=== PATIENT | female | born 1950 | race Caucasian/White ===

== ENCOUNTER 2018-05-28 05:30 | Observation (INO) | payer OTHER, MEDICARE ==
[2018-05-28] MEDS ORDERED: LACTATED RINGER'S 1,000 ML IV (07:00)
[2018-05-28] MEDS ORDERED: CEFAZOLIN 1 GM INJ (07:00)
[2018-05-28] MEDS ORDERED: MIDAZOLAM 1 MG/ML 2 ML INJ (07:12)
[2018-05-28] MEDS ORDERED: ROPIVACAINE 0.5 % 30 ML VIAL (07:14)
[2018-05-28 07:54] LABS: ADD UMIC YES; UR ASCORBIC ACID 20 mg/dL (NEGATIVE); UR BILIRUBIN (Dip) NEGATIVE (NEGATIVE); UR BLOOD (Dip) NEGATIVE (NEGATIVE); UR CLARITY CLEAR (CLEAR); UR COLOR YELLOW (YELLOW); UR GLUCOSE (Dip) NEGATIVE (NEGATIVE); UR KETONES (Dip) NEGATIVE (NEGATIVE); UR LEUKOCYTE ESTERASE (Dip) 1+ Leu/ul (NEGATIVE); UR NITRITE (Dip) NEGATIVE (NEGATIVE); UR RBC 1 /HPF (0-5); UR SPECIFIC GRAVITY (Dip) 1.014 (1.003-1.030); UR SQUAMOUS EPITHELIAL CELL FEW /HPF (FEW); UR TOTAL PROTEIN (Dip) NEGATIVE (NEGATIVE); UR UROBILINOGEN (Dip) NEGATIVE (NEGATIVE); UR WBC 3 /HPF (0-5)
[2018-05-28] MEDS ORDERED: hydrALAzine 20 MG INJ (08:54)
[2018-05-28] MEDS: EPINEPHrine 1 MG/ML 30 ML INJ IRR (09:02)
[2018-05-28] MEDS ORDERED: morphine 10 MG INJ (10:16)
[2018-05-28] MEDS ORDERED: KETOROLAC 30 MG INJ ×2 (11:27→13:15)
[2018-05-28] MEDS ORDERED: ONDANSETRON 4 MG INJ ×2 (11:28→12:08)
[2018-05-28] MEDS ORDERED: ETOMIDATE 20 MG INJ (11:45)
[2018-05-28] MEDS ORDERED: ROCURONIUM 50 MG INJ (11:45)
[2018-05-28] MEDS ORDERED: LIDOCAINE 2% (SDV) 5 ML INJ (11:45)
[2018-05-28] MEDS ORDERED: HYDROmorphONE 1 MG/5 ML IV SYRINGE IV ×2 (12:00→12:04)
[2018-05-28] MEDS ORDERED: METOCLOPRAMIDE 10 MG INJ IV (12:00)
[2018-05-28] MEDS ORDERED: NALOXONE (0.4 MG/ML) INJ IV (12:00)
[2018-05-28] MEDS ORDERED: hydrALAzine 20 MG INJ IV (12:00)
[2018-05-28] MEDS ORDERED: ONDANSETRON 4 MG INJ IV (12:00)
[2018-05-28] MEDS ORDERED: LABETALOL HCL 20MG INJ IV (12:00)
[2018-05-28] MEDS ORDERED: OXYCODONE/ACETAMINOPHEN (5/325) TAB PO ×3 (12:00)
[2018-05-28] MEDS ORDERED: FENTAnyl 50 MCG/ML VIAL ×2 (12:08→12:20)
[2018-05-28] MEDS ORDERED: MEPERIDINE 25 MG INJ (12:20)
[2018-05-28] MEDS: ONDANSETRON 4 MG INJ IV (12:29)
[2018-05-28] MEDS: FENTAnyl 50 MCG/ML VIAL IV (12:30)
[2018-05-28] MEDS: HYDROmorphONE 1 MG/5 ML IV SYRINGE IV (12:30)
[2018-05-28] MEDS: DIPHENHYDRAMINE 50 MG INJ IV (12:31)
[2018-05-28] MEDS: MEPERIDINE 25 MG INJ IV (12:31)
[2018-05-28] MEDS: morphine 2 MG INJ IV ×2 (13:17→13:28)
[2018-05-28] MEDS: KETOROLAC 30 MG INJ IV (13:18)
[2018-05-28] MEDS: OXYCODONE/ACETAMINOPHEN (5/325) TAB PO ×2 (13:29→19:37)
[2018-05-28] MEDS: LORAZEPAM 2 MG INJ IV (14:18)
[2018-05-28] MEDS: SOD CHLORIDE 0.9% 1,000 ML IV (21:52)
[2018-05-29] MEDS: CEFAZOLIN 1 GM/50 ML (PMX) 50 ML IVPB ×3 (00:02→11:09)
[2018-05-29] MEDS: OXYCODONE/ACETAMINOPHEN (10/325) TAB PO ×3 (00:06→08:28)
[2018-05-29] MEDS: morphine 2 MG INJ IV (05:54)
== END 2018-05-29 12:17 | disposition home or self-care (01) ==
LOC: SDS 05:30 → MS1 18:31 → SDS 16:40 → REC 19:56 → MS1 20:08
DX: M75.41 Impingement syndrome of right shoulder (principal); S46.211A Strain of muscle, fascia and tendon of other parts of biceps, right arm, initial encounter; M75.121 Complete rotator cuff tear or rupture of right shoulder, not specified as traumatic; S43.491A Other sprain of right shoulder joint, initial encounter; M94.211 Chondromalacia, right shoulder; M65.811 Other synovitis and tenosynovitis, right shoulder; W19.XXXA Unspecified fall, initial encounter; Y92.480 Sidewalk as the place of occurrence of the external cause
CPT/HCPCS: 29823; 71045; 81001

== ENCOUNTER 2018-08-20 05:26 | Day surgery (SDC) | payer OTHER, MEDICARE ==
[2018-08-20] MEDS ORDERED: EPHEDrine 25 MG/5 ML SYG (07:00)
[2018-08-20] MEDS ORDERED: SEVOFLURANE 15 MIN (07:00)
[2018-08-20] MEDS ORDERED: hydrALAzine 20 MG INJ (07:00)
[2018-08-20] MEDS ORDERED: GLYCOPYRROLATE 0.4 MG INJ ×3 (07:06→08:34)
[2018-08-20] MEDS ORDERED: NEOSTIGMINE 3 MG/3 ML SYRINGE ×2 (07:06→08:34)
[2018-08-20] MEDS ORDERED: SUCCINYLCHOLINE CHLORIDE 100 MG/5 ML SYG IV (07:06)
[2018-08-20] MEDS ORDERED: ROCURONIUM 50 MG INJ (07:06)
[2018-08-20] MEDS ORDERED: LIDOCAINE 2% (SDV) 5 ML INJ (07:06)
[2018-08-20] MEDS ORDERED: PROPOFOL 20 ML (07:06)
[2018-08-20] MEDS ORDERED: MIDAZOLAM 1 MG/ML 2 ML INJ (07:13)
[2018-08-20] MEDS ORDERED: CEFAZOLIN 1 GM INJ ×3 (08:34→10:24)
[2018-08-20] MEDS ORDERED: ONDANSETRON 4 MG INJ (08:34)
[2018-08-20] MEDS ORDERED: METOCLOPRAMIDE 10 MG INJ (08:35)
[2018-08-20] MEDS ORDERED: LABETALOL HCL 20MG INJ (08:51)
[2018-08-20] MEDS ORDERED: LABETALOL HCL 20MG INJ IV (09:30)
[2018-08-20] MEDS ORDERED: hydrALAzine 20 MG INJ IV (09:30)
[2018-08-20] MEDS ORDERED: FENTAnyl 50 MCG/ML VIAL IV ×3 (09:30)
[2018-08-20] MEDS ORDERED: OXYCODONE/ACETAMINOPHEN (5/325) TAB PO ×3 (09:30→11:00)
[2018-08-20] MEDS ORDERED: MIDAZOLAM 1 MG/ML 2 ML INJ IV (09:30)
[2018-08-20] MEDS ORDERED: DIPHENHYDRAMINE 50 MG INJ IV (09:30)
[2018-08-20] MEDS ORDERED: METOCLOPRAMIDE 10 MG INJ IV (09:30)
[2018-08-20] MEDS ORDERED: HYDROmorphONE 1 MG/5 ML IV SYRINGE IV (09:30)
[2018-08-20] MEDS ORDERED: EPHEDrine 25 MG/5 ML SYG IV (09:30)
[2018-08-20] MEDS ORDERED: MEPERIDINE 25 MG INJ IV (09:30)
[2018-08-20] MEDS ORDERED: SOD CHLORIDE 0.9% 1,000 ML IV (10:59)
[2018-08-20] MEDS ORDERED: ONDANSETRON 4 MG INJ IV (11:00)
[2018-08-20] MEDS ORDERED: morphine 2 MG INJ IV (11:00)
[2018-08-20] MEDS: ONDANSETRON 4 MG INJ IV (11:36)
[2018-08-20] MEDS: OXYCODONE/ACETAMINOPHEN (5/325) TAB PO (11:36)
[2018-08-20] MEDS: HYDROmorphONE 1 MG/5 ML IV SYRINGE IV ×2 (11:46→12:12)
[2018-08-20] MEDS: POVIDONE IODINE 10% 28.4 GM OINT (12:12)
[2018-08-20] MEDS: ROPIVACAINE 0.5 % 30 ML VIAL (12:13)
== END 2018-08-20 13:43 | disposition home or self-care (01) ==
LOC: SDS 05:26
DX: T84.89XA Other specified complication of internal orthopedic prosthetic devices, implants and grafts, initial encounter (principal); S46.011A Strain of muscle(s) and tendon(s) of the rotator cuff of right shoulder, initial encounter; M67.813 Other specified disorders of tendon, right shoulder; M94.211 Chondromalacia, right shoulder; Y79.3 Surgical instruments, materials and orthopedic devices (including sutures) associated with adverse incidents; Y83.8 Other surgical procedures as the cause of abnormal reaction of the patient, or of later complication, without mention of misadventure at the time of the procedure; L90.5 Scar conditions and fibrosis of skin; I10 Essential (primary) hypertension
CPT/HCPCS: 29823